=== PATIENT | male | born 1965 | race Caucasian/White ===

== ENCOUNTER → 2021-11-27 08:25 | Outpatient (BNVA) | payer OTHER, SELFPAY | PROVIDERS: PCP Internal Medicine; Visit Provider Physician Assistant Surgical ==

== ENCOUNTER → 2021-12-04 08:03 | Outpatient (BNVA) | payer OTHER, SELFPAY | PROVIDERS: PCP Internal Medicine; Visit Provider Surgery ==

== ENCOUNTER → 2022-01-08 08:09 | Outpatient (BNVA) | payer OTHER, SELFPAY | PROVIDERS: PCP Internal Medicine; Visit Provider Surgery | DX: Z13.89 Encounter for screening for other disorder (principal) ==